=== PATIENT | female | born 1975 | race Native Hawaiian/Other Pacific Islander ===

== ENCOUNTER 2017-12-17 12:00 | Day surgery (SDC) | payer OTHER ==
[2017-12-13 13:28] VITALS: BMI 20.2
[~2017-12-17 12:00] MED LIST: Lactated Ringer's 1,000 ML IV ONE
[2017-12-17 12:21] LABS: BLOOD UREA NITROGEN 15 mg/dl (7-17); CALCIUM 9.8 mg/dL (8.4-10.2); GFR AFRICAN-AMERICAN > 60; GFR NON-AFRICAN AMERICAN > 60
[2017-12-17 12:26] LABS: BASO % 0.8 % (0.0-2.0); EOS # 0.1 K/uL (0.0-0.7); EOS % 1.4 % (0.0-4.0); LYMPH # 1.3 K/uL (1.0-4.3); LYMPH % 23.7 % (20.0-40.0); MEAN CELL VOLUME 85.1 fl (81.0-99.0); MEAN CORPUSCULAR HEMOGLOBIN 28.6 pg (27.0-31.0); MEAN CORPUSCULAR HGB CONC 33.6 g/dL (33.0-37.0); MEAN PLATELET VOLUME 8.4 fl (7.2-11.7); MONO # 0.3 K/uL (0.0-0.8); MONO % 5.3 % (0.0-10.0); NEUT # 3.9 K/uL (1.8-7.0); NEUT % 68.8 % (50.0-75.0); NRBC % 0.1 % (0.0-0.0); RBC 4.91 Mil/uL (3.80-5.20); RED CELL DISTRIBUTION WIDTH 12.3 % (11.5-14.5); WHITE BLOOD COUNT 5.7 K/uL (4.8-10.8)
[2017-12-17] MEDS ORDERED: Bupivacaine 0.5% Inj(30mL) ONE (16:10)
[2017-12-17] MEDS ORDERED: Propofol 10 mg/ml Inj (20 ML) ONE (16:19)
[2017-12-17] MEDS ORDERED: Succinylcholine 200 mg/10 ml Inj IV ONE (16:19)
[2017-12-17] MEDS ORDERED: Rocuronium 10 mg/ml (5 ml) ONE (16:19)
[2017-12-17] MEDS ORDERED: Dexamethasone 4 mg/1 ml ONE (16:21)
[2017-12-17] MEDS ORDERED: Lidocaine 4% (Laryng-O-Jet) Kit MM ONE (16:23)
[2017-12-17] MEDS ORDERED: Midazolam 2 MG/2 ML VIAL ONE (17:10)
[2017-12-17] MEDS ORDERED: Bupivacaine 0.5% 50 ML IJ ONE (17:55)
[2017-12-17] MEDS ORDERED: Oxycodone/Acetaminophen 5/325 mg Tab PO PRN (18:50)
[2017-12-17] MEDS ORDERED: Lactated Ringer's 1,000 ML IV SCH ×2 (19:00→19:30)
[2017-12-17] MEDS: HYDROmorphone 0.5 mg/0.5 ml ISec IVP PRN ×2 (19:05→19:35)
[2017-12-17] MEDS ORDERED: Lactated Ringer's 1,000 ML IV ONE (19:46)
[2017-12-17 19:48] VITALS: O2SAT 98
[2017-12-17 20:30] VITALS: BP 116/72; PULSE 79; RESP 20; TEMP 97
--- NOTE | 2017-12-17 21:11 | OP ---
PROCEDURE DATE: PREOPERATIVE DIAGNOSES: Pelvic pain, dysmenorrhea and dyspareunia. POSTOPERATIVE DIAGNOSES: Pelvic pain, dysmenorrhea, dyspareunia and pelvic endometriosis. PROCEDURE PERFORMED: Cystoscopy with bilateral ureteral catheterization, injection of dye, hysteroscopy and laparoscopy and helium plasma ablation of ovarian endometriotic lesion and peritoneal destruction. SURGEON: Tim Chino MD NUCLEAR PHYSICS PROFESSOR: Jaron Roth MD ESTIMATED BLOOD LOSS: Minimal. COMPLICATIONS: None. SPECIMEN: No specimen sent to pathology. INDICATION FOR THE PROCEDURE: The patient is a 42-year-old with history of dysmenorrhea and dyspareunia. On exam, the patient had tenderness on both ovarian sides, more to the left than on the right. The patient was counseled with regards to the risk and benefits of the procedure. She signed the consent and was taken to the OR. DESCRIPTION OF PROCEDURE: After adequate anesthesia was obtained, the patient was placed in a dorsal lithotomy position and she was prepped and draped. The surgeons were gowned and gloved. A great attention was made on placing extensive padding on all the areas prone to pressure and throughout the procedure. Maximum effort was made not to hyperextend or hyperflex her hips. At this point, a cystoscope was placed to the bladder. The bladder appear to be normal, free of any lesions or tumors. The left ureteral ostium was catheterized using 5-Faroese open-ended catheter and 5 mL of IC-Green was injected. At this point, the contralateral ureteral ostium was also catheterized all way to the distal ureter and 5 mL of IC-Green were also injected. The catheter was removed. The Bryant was placed into the bladder. A speculum was then placed into the vagina. The anterior lip of the cervix was grasped. The cervix was gently dilated and a hysteroscope was placed into the uterine cavity, appearing to be in normal size with no evidence of lesions, tumors or polyps. A uterine manipulator was placed in the uterus and attention was on the abdomen. After re-gowning and re-gloving, an open laparoscopy was performed using a standard technique by making incision below the umbilicus and entering the peritoneum in a blunt fashion. A cannula was then placed and abdomen was desufflated. Findings were as follows, there were multiple small endometriotic implants on the ovaries. There was no evidence of peritoneal lesions, but some inflammatory like lesions on the peritoneum. Given the fact that we did not want to do any damage and most of the lesions on the ovary were superficial and the patient was interested in preserving her fertility to the maximum degree. We opted for plasma destruction of the lesion. Attention was first on the right ovary where 4-5 lesions were destroyed and then on the left ovary where 4-5 lesions were also destroyed. The posterio cul-de-sac peritoneum was then ablated utilizing the helium plasma. At this point, it was checked for hemostasis, a small area of bleeding in the posterior cervical area was coagulated. The pelvis was irrigated and it was very dry. The ureters were out of the way and not damaged. At this point, the pelvis was irrigated. The instruments were removed and the abdomen desufflated. The incisions were closed in layers with 0-PDS for the fascia and 4-0 Monocryl for the skin. At the end of the procedure, all tapes and instruments counts were correct. The patient tolerated the procedure well and was taken to the recovery room in excellent condition. Tim Chnio MD RESHMA
== END 2017-12-17 20:30 | disposition home or self-care (01) ==
LOC: CANPRESDC → H.OPSURG 12:00 → H.PEDS 20:15 → H.OPSURG 20:15 → H.PEDS 22:35 → H.OPSURG 22:35
PROVIDERS: ATTEND Obstetrics & Gynecology Reproductive Endocrinology
DX: N80.3 Endometriosis of pelvic peritoneum (principal); R10.2 Pelvic and perineal pain; E03.9 Hypothyroidism, unspecified; N94.6 Dysmenorrhea, unspecified
CPT/HCPCS: 36415; 58563; 80048; 82948; 83735; 85025; 86850; 86900; C1729; J0330; J0690; J1100; J1170; J1885; J2001; J2250; J2405; J2704; J2765; J3010; J7030; J7120

== ENCOUNTER 2018-09-23 10:55 | Day surgery (SDC) | payer OTHER ==
[2017-12-13 13:28] VITALS: BMI 20.2
[2018-09-23] MEDS ORDERED: Lactated Ringer's 1,000 ML IV ONE (11:27)
[2018-09-23 12:19] LABS: BASO % 0.5 % (0.0-2.0); EOS # 0.1 K/uL (0.0-0.7); EOS % 1.5 % (0.0-4.0); HEMOGLOBIN 11.8 g/dL (12.0-16.0); LYMPH # 1.9 K/uL (1.0-4.3); LYMPH % 25.5 % (20.0-40.0); MEAN CELL VOLUME 90.7 fl (81.0-99.0); MEAN PLATELET VOLUME 7.1 fl (7.2-11.7); MONO # 0.5 K/uL (0.0-0.8); MONO % 6.4 % (0.0-10.0); NEUT % 66.1 % (50.0-75.0); NRBC % 0.1 % (0.0-0.0); RBC 4.08 Mil/uL (3.80-5.20); RED CELL DISTRIBUTION WIDTH 15.4 % (11.5-14.5); WHITE BLOOD COUNT 7.6 K/uL (4.8-10.8)
[2018-09-23] MEDS ORDERED: Propofol 10 mg/ml Inj (20 ML) ONE (14:40)
[2018-09-23] MEDS ORDERED: ePHEDrine 50 mg/ml Inj ONE (14:41)
[2018-09-23] MEDS ORDERED: Succinylcholine 200 mg/10 ml Inj IV ONE (14:41)
[2018-09-23] MEDS ORDERED: Lidocaine 4% (Laryng-O-Jet) Kit MM ONE (14:41)
[2018-09-23] MEDS ORDERED: Midazolam 2 MG/2 ML VIAL ONE (14:41)
[2018-09-23] MEDS ORDERED: Dexamethasone 4 mg/1 ml IVP PRN (15:39)
[2018-09-23] MEDS ORDERED: HYDROmorphone 0.5 mg/0.5 ml ISec IVP PRN (15:39)
[2018-09-23] MEDS ORDERED: Lactated Ringer's 1,000 ML IV SCH (15:45)
[2018-09-23 16:31] VITALS: O2SAT 98
[2018-09-23 17:02] VITALS: RESP 18
[2018-09-23 17:36] VITALS: BP 110/70; PULSE 85; TEMP 97.5
--- NOTE | 2018-09-23 17:54 | OP ---
PROCEDURE DATE: 09/23/2018 SURGEON: Tim Chino MD TRACK INSPECTOR: None ANESTHESIOLOGIST: Jaron Enriquez MD TYPE OF ANESTHESIA: General endotracheal. PREOPERATIVE DIAGNOSES: 1. Incapacitating pelvic pain. 2. Incapacitating abdominal pain. 3. Abnormal uterine bleeding. 4. History of pelvic endometriosis. 5. History of previously failed medical and surgical therapy. 6. Gastrointestinal and genitourinary symptoms. 7. Rule out interstitial cystitis. 8. History of severe endometriosis and pelvic adhesions POSTOPERATIVE DIAGNOSES: 1. Incapacitating pelvic pain. 2. Incapacitating abdominal pain. 3. Abnormal uterine bleeding. 4. History of pelvic endometriosis. 5. History of previously failed medical and surgical therapy. 6. History of severe endometriosis and pelvic adhesions. 7. Gastrointestinal and genitourinary symptoms. 8. 9. Mild ureteral distention. PROCEDURES PERFORMED: 1. Exam under anesthesia. 2. Video assisted hysteroscopy. 3. Cystoscopy. 4. Bilateral ureteral catheterization and injection of IC-Green dye. 5. Robotic da Maria D operative laparoscopy. 6. Treatment of endometriosis. 7. Excision of endometriosis. 8. Bilateral ureterolysis. 9. Bilateral ovariolysis. COMPLICATIONS: None. SAMPLES SENT: 1. Left Uterosacral l endometriosis. 2. Left periureteral endometriosis. 3. Right periureteral endometriosis. 4. Right uterosacral endometriosis. 5. Left and right ovarian fossa endometriosis. 6. Iliac endometriosis. 7. Posterior cervical endometriosis. 8. Rectal endometriosis, anterior. 9) Cul de sac endometriosis INDICATION FOR THE PROCEDURE AND CONSENT: The patient had a long history of pelvic pain, dysmenorrhea, dyspareunia, abdominal pain, and bladder pain. The patient had been thoroughly evaluated and counseled regarding the pros and cons of the procedure, the reasonable alternatives, and possible complications. She understood and accepted the risks involved. Literature was provided to the patient. The patient was understanding and given her history and per surgical exam, she was at high risk in an average patient. She accepted all the risks involved, and all the questions had been answered to her satisfaction. FINDINGS OF SURGERY: Genitalia: Normal external genitalia, cervix without lesion and polyps. Hysteroscopy: Hysteroscopy shows a clear uterine cavity with no polyps or masses noticed. Cystoscopy: The cystoscopy was performed to rule out endometriosis and also any interstitial cystitis and also injury. The bladder was normal with no evidence of stone, trigonitis, or cystitis. A positive jet flow was identified in both ureters. Laparoscopy: The upper abdomen appeared to be normal. Gallbladder was normal. Liver edges appeared to be normal. Ascending colon and transverse were normal. There was evidence of adhesions, fibrosis, and endometriosis of the rectovaginal and pelvic sidewalls. The appendix appeared to be . Both fallopian tubes appeared to be patent, although there was evidence of inflammation on the serosal surface of both fallopian tubes, and there was slight conglutination of both fimbriated ends although they both appeared to be functional. There was also evidence of mild hydroureters. DESCRIPTION OF THE PROCEDURE: Initiation of the case: After adequate anesthesia was obtained, the patient was placed in the dorsal lithotomy position, and with extreme care, placement of the patient with hyperextension and hyperflexing of the hips. At this point, the patient was prepped and draped. The surgeon was gowned and gloved. A timeout was taken according to the hospital procedure and the procedure was started. At this point, we performed cystoscopy, bilateral ureteral catheterization. A cystoscope was inserted into the bladder under direct visualization and the bladder was visualized. The bladder was free of lesions and tumors. There was no evidence of interstitial cystitis, and there was only mild amount of trigonitis. At this point, both ureters were identified and appeared to be in their normal anatomical position. At this point, utilizing an open 5-Setswana open-ended catheter, the left ureter was catheterized all the way to the distal ureter, and 5 mL of IC-Green was injected into this ureter. Similarly, the contralateral ureter was catheterized all the way to the distal ureter, and 5 mL of IC-Green was injected into the distal ureter. At this point, the stents were removed, and the cystoscope was removed, and the 16-Setswana Bryant was inserted into the bladder. At this point, we proceeded with a hysteroscopy. A speculum was placed into vagina, and the anterior lip of the cervix was grasped. The cervix was dilated, and a hysteroscope was inserted into the cavity. The cavity appeared to be of normal size with no evidence of polyps, cysts, adenomyosis, or fibroids. At this point, we proceeded with placement of a trocar and docking of the da Maria D Xi robot. The surgeon was re-gowned and gloved, and open laparoscopy was performed by making incision in the umbilicus and the fascia was incised. The peritoneum was entered in a blunt fashion, and the cannula was inserted under direct visualization. The abdomen was insufflated, and under direct visualization, three additional ports were inserted in the left upper quadrant, left mid quadrant, and right upper quadrant. At this point, the da Maria D Xi robot was brought into the field and docked, and the instruments were inserted under direct visualization. All this with extreme care not to injure the bowel or another area. As per dictation, the upper abdomen appeared to be normal with no evidence of any lesions. At this point, we proceeded with a left ureterolysis. The ureter appeared to be dilated and was clearly identified utilizing IC-Green fluorescent technology. Anesthesia was made in the peritoneum at the top of the pelvic brim, and the incision was then carried down all the way opening the peritoneum all the way down from the pelvic brim, all the way down to the ovarian fossa, extending the incision below the ovary. It was a progressive dissection where the ureter was progressively lateralized and peritoneum was medialized, thus freeing the ureter all the way down to the cross of the uterine vessels. After this was done, the ureter was freed and lateralized, and a larger peritoneum which had been opened, was excised, and sent to pathology. At this point, with the aid of very slow process, I was able to elevate the ovary and proceed with ovariolysis. At this point, we proceeded with a left ovariolysis. The left ovary was adherent to the posterior aspect of the uterus. It was gently dissected in a step by step way. It was peeled off, the ovarian fossa, andan area of extensive fibrosis and endometriosis was exposed. At this point, we proceeded with a right ureterolysis. The ureter was identified again utilizing fluorescent technology on the right hand side and retroperitoneal space was entered, and a full dissection was performed,entering the retroperitoneal space and dissecting the ureter, removing the ureter laterally and the peritoneum medially. A full dissection was performed all the way down to the ovarian fossa and the crossing of the uterine arteries. An area of peritoneum containing endometriosis was dissected and sent to Pathology. At this point, we proceeded with a right ovariolysis. The right ovary was adherent to the peritoneum. It was gently elevated progressively, and dissected off from the peritoneal area. All this done with extreme care to preserve vascularization to the ovary. At this point, we proceeded with treatment of endometriosis and excision of endometriosis. On the left hand side, fibrosis, especially in the left ovarian fossa was excised. In a very progressive step by step fashion, we dissected off fibrosis containing endometriosis and freed up the whole area. The ureters which had been lateralized. Areas of fibrosis and endometriosis were also identified in the posterior cul-de-sac and in the rectovaginal space which was also affected with endometriosis and fibrosis. At this point, we proceeded with the excision of perirectal endometriosis. The rectovaginal area had significant fibrosis and additional endometriosis was dissected from the posterior aspect of the uterus, and the rectovaginal space was entered at the level of the peritoneal reflection. All this done making sure that no damage to the rectum was performed. At this point, endometriosis was also excised from the right uterosacral area which also was affected by fibrosis and endometriosis. At this point, it was checked for hemostasis and appeared to be excellent. Both fallopian tubes were in good condition and patent. At this point we proceeded with destruction of inflammatory areas utilizing the j-plasma energy device. We checked for hemostasis and organ integrity and all was normal. At this point, the da Maria D Xi robot was removed. The abdomen was desufflated, and the incisions were closed in layers with 0 PDS for the fascia and 4-0 Monocryl for the skin. At the end of the procedure, all tips and instrument counts were correct. The patient tolerated the procedure well and was taken to the recovery room in excellent condition. Matti MONTESINOS, Tim JUSTICE
== END 2018-09-23 17:30 | disposition home or self-care (01) ==
LOC: H.OPSURG 10:55
PROVIDERS: ATTEND Obstetrics & Gynecology Reproductive Endocrinology
DX: R10.2 Pelvic and perineal pain (principal); N73.6 Female pelvic peritoneal adhesions (postinfective); N80.0 Endometriosis of uterus; N80.1 Endometriosis of ovary; N80.3 Endometriosis of pelvic peritoneum; N80.5 Endometriosis of intestine; N94.6 Dysmenorrhea, unspecified
CPT/HCPCS: 36415; 58662; 85025; 86850; 86900; 88305; J0330; J2001; J2250; J2704; J3010; J7030; J7120